=== PATIENT | male | born 1970 | race Caucasian/White ===

== ENCOUNTER 2019-04-15 12:28 | Emergency (ER) | payer BC, OTHER ==
[~2019-04-15] VITALS: Ht 175.3 cm; Wt 86.2 kg
[2019-04-15] MEDS ORDERED: KEFLEX500 M1 PO (14:06)
[2019-04-15 14:56] VITALS: BP 124/77
== END 2019-04-15 14:56 | disposition home or self-care (01) ==
LOC: ER 12:28
DX: S62.515A Nondisplaced fracture of proximal phalanx of left thumb, initial encounter for closed fracture (principal); S61.012A Laceration without foreign body of left thumb without damage to nail, initial encounter; E78.00 Pure hypercholesterolemia, unspecified; W23.0XXA Caught, crushed, jammed, or pinched between moving objects, initial encounter; Y92.89 Other specified places as the place of occurrence of the external cause; Y93.89 Activity, other specified; Y99.8 Other external cause status